=== PATIENT | male | born 1945 | race Caucasian/White ===

== ENCOUNTER → 2020-02-27 | Outpatient (CLI) | payer OTHER ==
[~2020-02-27] MED LIST: ADULT LOW DOSE81 MG PO; AMLODIPINE BESYL5 MG PO; ASA81BEC PO; ATORVASTATIN CA40 MG PO; BENAZEPRIL HCL40 MG PO; CARVEDILOL3.125 MG PO; COLACE100 MG PO; Effient PO; GLUCOPHAGE500 MG PO; LEVOXYL PO; LIPITOR40 MG PO; LIPITOR80 MG PO; METFORMIN HCL500 MG PO; NORVASC5 MG PO; SYNTHROID75 MCG PO
== END ==
LOC: SJCVC 11:24
DX: I25.10 Atherosclerotic heart disease of native coronary artery without angina pectoris (principal); R06.00 Dyspnea, unspecified; I10 Essential (primary) hypertension; E78.00 Pure hypercholesterolemia, unspecified; M17.0 Bilateral primary osteoarthritis of knee; E11.9 Type 2 diabetes mellitus without complications; E78.5 Hyperlipidemia, unspecified; E03.9 Hypothyroidism, unspecified; Z79.82 Long term (current) use of aspirin; Z79.899 Other long term (current) drug therapy; Z79.84 Long term (current) use of oral hypoglycemic drugs; Z82.49 Family history of ischemic heart disease and other diseases of the circulatory system

== ENCOUNTER → 2020-08-28 | Outpatient (CLI) | payer OTHER | LOC: SJCVCIMAG 09:46 | PROVIDERS: ATTEND Internal Medicine Cardiovascular Disease | DX: I25.10 Atherosclerotic heart disease of native coronary artery without angina pectoris (principal); I45.10 Unspecified right bundle-branch block; I44.0 Atrioventricular block, first degree; I49.3 Ventricular premature depolarization; I10 Essential (primary) hypertension; E78.00 Pure hypercholesterolemia, unspecified; E11.9 Type 2 diabetes mellitus without complications; Z79.899 Other long term (current) drug therapy ==

== ENCOUNTER → 2020-12-13 | Outpatient (CLI) | payer OTHER | LOC: SJCVC 11:10 | PROVIDERS: ATTEND Internal Medicine Cardiovascular Disease | DX: I25.10 Atherosclerotic heart disease of native coronary artery without angina pectoris (principal); I10 Essential (primary) hypertension; E78.00 Pure hypercholesterolemia, unspecified; R60.9 Edema, unspecified; Z88.5 Allergy status to narcotic agent; Z79.82 Long term (current) use of aspirin; Z79.84 Long term (current) use of oral hypoglycemic drugs; Z79.899 Other long term (current) drug therapy; Z90.89 Acquired absence of other organs; Z98.890 Other specified postprocedural states ==

== ENCOUNTER 2020-12-23 07:36 | Observation (INO) | payer OTHER ==
[~2020-12-23] VITALS: Ht 188 cm; Wt 97.2 kg
[~2020-12-23 07:36] MED LIST changes: +LEVOTHYROXINE75 MC1 PO; -SYNTHROID75 MCG PO
[2020-12-23 08:02] VITALS: BP 134/76
[2020-12-23] MEDS ORDERED: NORVASC 2.5 MG2.5 M1 PO (08:33)
[2020-12-23] MEDS ORDERED: LOSARTAN-HCTZ1 EAC3 PO (08:39)
--- NOTE | 2020-12-23 13:16 | EKG ---
[address] [address] ELECTROCARDIOGRAM REPORT Name: CHRISTINE WYLIE Room #: REG [facility]#: [id number] Admission: 12/23/20 Attend Phys: Yong Degroot MD Discharge: Date of : 45 Report #: [id number] [facility] Test Date: 2020-12-23 Test Time: 13:05:57 Pat Name: CHRISTINE WYLIE Department: Room: Gender: Photographic Intelligence Officer: JUAN MANUEL : 1945 Requested By: Yong Degroot Order Number: [id number] MD: Al Liao Measurements Intervals [place] Rate: 61 P: 9 AR: 195 QRS: 12 QRSD: 160 T: 1 QT: 466 QTc: 470 Interpretive Statements Sinus rhythm Atrial premature complex Right bundle branch block Probable lateral infarct, old Compared to ECG 03/19/2014 17:41:54 Atrial premature complex(es) now present Sinus arrhythmia no longer present Myocardial infarct finding still present Electronically Signed On 12-23-2020 13:16:30 ELECTRICAL MAINTENANCE WORKER by Al Liao [email or web address] <ELECTRONICALLY SIGNED> By: Al Liao MD 12/23/20 1316 1305 1305 Al Liao MD /EPI
[2020-12-23 13:37] LABS: ABSOLUTE NEUTROPHILS 3.4 thou/uL (1.4-8.2); BASOPHILS 0.7 % (0.0-2.0); EOSINOPHILS 1.8 % (0.0-3.0); HEMOGLOBIN 12.4 gm/dL (14.0-18.0); LYMPHOCYTES 23.9 % (24.0-44.0); MCH 32.7 pg (26.0-34.0); MCHC 33.6 g/dL (28.0-37.0); MCV 97.4 fL (80.0-100.0); MONOCYTES 7.8 % (1.0-8.0); PLATELET COUNT 221 thou/uL (150-400); POLYS 65.8 % (36.0-66.0); RDW 12.1 % (10.5-14.5); WBC 5.1 thou/uL (4.0-11.0)
[2020-12-23 13:44] LABS: CALCIUM 8.7 mg/dL (8.5-10.1); CREATININE 1.1 mg/dL (0.7-1.3); POTASSIUM 3.5 mmol/L (3.5-5.1)
[2020-12-23 13:51] LABS: ALBUMIN 3.5 g/dL (3.4-5.0); APTT 41.5 Seconds (24.5-32.8); INR 1.3; TOTAL BILIRUBIN 1.1 mg/dL (0.2-1.0); TOTAL PROTEIN 6.8 g/dL (6.4-8.2)
--- NOTE | 2020-12-23 13:57 | CATHLAB ---
[facility] [place] [address] INVASIVE PROCEDURE REPORT Name: CHRISTINE WYLIE Room #: REG [facility]#: [id number] Admission: 12/23/20 Attend Phys: Yong Degroot MD Discharge: Date of : 45 Report #: [id number] THIS REPORT FOR: cc: Elvira Lugo MD, Cynthia MD Park, Jin S. MD ~ APPROVED REPORT Study performed: 12/23/2020 09:24:43 Patient Details Patient Status: In-Patient Room #: The patient is a 75 year-old male Event Personnel Yong Degroot Tapper Shank, Vivian Handy RN RN, Raymond Carney RTR Mike Cope Roberta Monitor Procedures Performed Art Access - R femoral artery* Left Heart Cath w/or w/o Coronaries [id number] [facility] PTCA Single Vessel RCA 6050740 PCISINGLE [address] Initial Mod Sed Same Phys/QHP Gr5y 372943 93662 Mod Sed Same Phys/QHP Ea 174252 Hemostasis w/ Mynx Indication Dyspnea, Positive stress test Risk Factors Hypercholesterolemia, Coronary Artery DiseaseHypertension, Diabetes Previous Procedures/Diagnoses Previous PCI Procedure Narrative The Right Groin^ was infiltrated with 1% Lidocaine subcutaneous anesthesia. A PINNACLE 4FR Sheath #[id number] sheath was inserted into the RFA^. Coronary angiography was performed using coronary diagnostic catheters. The right coronary system was accessed and visualized with a JR4 catheter. The left coronary system was accessed and visualized with a JL5 catheter. The left ventricle was accessed and visualized with a ANGLE PIG catheter. There was no hematoma. Intraoperative Conscious Sedation [facility] [address] [place] [address] INVASIVE PROCEDURE REPORT Name: CHRISTINE WYLIE Room #: REG [facility] [id number] Admission: 12/23/20 Attend Phys: Yong Degroot MD Discharge: Date of : 45 Report #: [id number] Sedation start time: 1000 Case end Time: 1134 Fentanyl 100 mcg Versed 2 mg Fluoro Time: 17.00 minutes Dose: DAP 13932.70 cGycm2 3748 mGy Contrast Type and Amount: Omnipaque 135 ml Coronary Angiography The patient's coronary anatomy is right dominant. Diagnostic Cath Left Main The left main artery is a large-caliber vessel, with a mild to moderate proximal stenosis. LAD The LAD is heavily calcified in the proximal and mid segments. There is a borderline stenosis in the proximal segment, 60 to 70%. Diagonal 1 This is a moderate-sized caliber vessel, patent with no flow-limiting lesions. Diagonal 2 This is a moderate-sized caliber vessel, patent with no flow-limiting lesions. Circumflex This is a moderate-sized caliber vessel, supplies 1 OM vessel. There is mild to moderate disease at the ostium. OM1 This is a patent vessel, with no flow-limiting lesions. Right Coronary The RCA is a dominant vessel, heavily calcified with previous stents. The stents in the distal RCA are patent with mild restenosis. There are severe occlusions, 80 to 90% in the proximal, mid and distal segments of the RCA. The distal lesion is at the bifurcation of the PDA and RPL branch. R PDA This is a moderate-sized caliber vessel, extending out into the apical region. This vessel is patent with no flow-limiting lesions. RPLV This is a moderate-sized caliber vessel with a patent stent in the proximal segment. This vessel extends out to the inferolateral wall. Left Ventriculography Left Ventriculography was not performed. Ejection Fraction was 55-60% based off patient's Nuclear Cardiac Stress Test. An LVEDP was measured and there is no gradient across the outflow tract. Hemodynamics The aortic pressure is 121/64 mmHg with a mean of 42 mmHg. The left ventricular pressure is 140/11 mmHg with a mean of mmHg. The left ventricular end diastolic pressure is 23 mmHg. [facility] [address] [place] [address] INVASIVE PROCEDURE REPORT Name: CHRISTINE WYLIE Room #: [facility] [id number] Admission: 12/23/20 Attend Phys: Yong Degroot MD Discharge: Date of : 45 Report #: [id number] PCI Technique Lesion Percutaneous coronary intervention was performed on the proximal right coronary artery. A VISTA 6FR AR 1 #[id number] Guide Catheter was used to engage the RCA ostium. A Luge Wire .014 x 182CM #[id number] Interventional Guidewire was used to cross the lesion. BALLOON DILATION A Balloon catheter MINI TREK RX 1.5 X 12 #[id number] was inserted and inflated up to 14atm for 19seconds. Additional Inflation: 17atm for 14seconds. Additional Inflation: 16atm for 13seconds. POST STENT DEPLOYMENT BALLOON DILATION A Balloon catheter Euphora RX 2.5 x 12 #[id number] was inserted and inflated up to 10atm for 21seconds. Additional Inflation: 10atm for 19seconds. COMMENTS Initially, a luge wire was placed through the RCA and placed at the distal segment of the right posterior lateral branch. Attempts at passing a balloon into the distal lesion was unsuccessful. A second, yulissa wire was placed and only a small size balloon was able to be delivered to the distal stenosis. Even with this adjustment, we were unsuccessful in passing a 2.5 mm semicompliant balloon into the distal stenosis. At this point, the procedure was aborted. The patient will be observed overnight and will obtain a CV surgical consultation. The patient tolerated the procedure without any complaints. Conclusion 1. Severe two-vessel disease. 2. Heavily calcified lesions in the LAD and RCA. 3. Unsuccessful PCI of the RCA stenoses due to inability to pass a balloon into the distal stenosis secondary to excessive tortuosity and calcification. 4. Recommend CV surgical consultation. <ELECTRONICALLY SIGNED> By: Yong Degroot MD 12/23/20 1357 1357 1357 Yong Degroot MD /INF
--- NOTE | 2020-12-23 15:53 | 2DMMODE ---
[facility] [place] [address] 2 D/M-MODE ECHOCARDIOGRAM Name: CHRISTINE WYLIE Room #: REG [facility]#: [id number] Admission: 12/23/20 Attend Phys: Yong Degroot MD Discharge: Date of : 45 Report #: [id number] THIS REPORT FOR: cc: Elvira Lugo MD, Cynthia MD Park, Jin S. MD ~ APPROVED REPORT Study performed: 12/23/2020 15:02:18 EXAM: Comprehensive 2D, Doppler, and color-flow Echocardiogram Patient Location: CVL 3 Status: routine BSA: 2.23 HR: 60 bpm BP: 134/76 mmHg Rhythm: NSR Other Information Study Quality: Fair Technically limited study due to body habitus. Indications Pre-Op CAD 2D Dimensions RVDd: 42.57 mm IVSd: 13.46 (7-11mm) LVOT Diam: 24.71 (18-24mm) LVDd: 45.16 mm PWd: 11.60 (7-11mm) Ascending Ao: 29.82 (22-36mm) LVDs: 26.49 (25-40mm) Left Atrium: 42.73 (27-40mm) Aortic Root: 31.74 mm IVC: 11.00 mm Volumes Left Atrial Volume (Systole) Single Plane 4CH: 40.46 mL Single Plane 2CH: 20.36 mL LA ESV Index: 18.00 mL/m2 Aortic Valve AoV Peak Luis Felipe.: 1.37 m/s [facility] [address] [place] [address] 2 D/M-MODE ECHOCARDIOGRAM Name: CHRISTINE WYLIE Room #: [facility]#: [id number] Admission: 12/23/20 Attend Phys: Yong Degroot MD Discharge: Date of : 45 Report #: [id number] Peak Gr.: 7.51 mmHg LVOT Max P.26 mmHg LVOT Max V: 1.15 m/s TYLER Vmax: 4.01 cm2 Mitral Valve MV Peak Gr.: 4.59 mmHg MV Mean Gr.: 1.64 mmHg E/A Ratio: 0.8 MV Decel. Time: 430.57 ms MV E Max Luis Felipe.: 0.61 m/s MV A Luis Felipe.: 0.73 m/s MV Max Luis Felipe.: 1.07 m/s MV Mean Luis Felipe.: 0.57 m/s MV VTI: 444.05 mm MV PHT: 124.86 ms IVRT: 124.57 ms Pulmonary Valve PV Peak Luis Felipe.: 1.06 m/s PV Peak Gr.: 4.49 mmHg Pulmonary Vein P Vein S: 0.62 m/s P Vein A: 0.20 m/s P Vein D: 0.45 m/s P Vein A Dur.: 138.4 msec P Vein S/D Ratio: 1.38 Tricuspid Valve TR Peak Luis Felipe.: 2.09 m/s TR Peak Gr.: 17.41 mmHg Left Ventricle The left ventricle is normal size. There is normal LV segmental wall motion. There is normal left ventricular wall thickness. Left ventricular systolic function is normal. The left ventricular ejection fraction is within the normal range. LVEF is 65-70%. Transmitral Doppler flow pattern suggests impaired LV relaxation. Right Ventricle The right ventricle is normal size. The right ventricular systolic function is normal. Atria The left atrium size is normal. Right atrium is dilated. Aortic Valve The aortic valve is normal in structure. No aortic regurgitation is present. There is no aortic valvular stenosis. [facility] [address] [place] [address] 2 D/M-MODE ECHOCARDIOGRAM Name: CHRISTINE WYLIE Room #: REG [facility]#: [id number] Admission: 12/23/20 Attend Phys: Yong Degroot MD Discharge: Date of : 45 Report #: [id number] Mitral Valve The mitral valve is normal in structure. Trace mitral regurgitation. No evidence of mitral valve stenosis. Tricuspid Valve The tricuspid valve is normal in structure. Trace tricuspid regurgitation. Pulmonic Valve The pulmonary valve is normal in structure. There is no pulmonic valvular regurgitation. Great Vessels The aortic root is normal in size. IVC is normal in size and collapses >50% with inspiration. Pericardium There is no pericardial effusion. No pleural effusion. <Conclusion> The left ventricle is normal size. There is normal left ventricular wall thickness. Left ventricular systolic function is normal. The right ventricle is normal size. The left atrium size is normal. The aortic valve is normal in structure. Trace mitral regurgitation. <ELECTRONICALLY SIGNED> By: Yong Degroot MD 12/23/20 1553 1553 1553 Yong Degroot MD /INF
[2020-12-23] MEDS ORDERED: NORVASC10 MG PO (16:25)
[2020-12-23] MEDS ORDERED: LOSARTAN-HCTZ1 EAC2 PO (16:27)
--- NOTE | 2020-12-23 17:29 | NUR ---
REPORT GIVEN TO RANDY ON CCU. ROOM NOT CLEAN AT THIS TIME
--- NOTE | 2020-12-23 18:41 | NUR ---
PT ARRIVED TO CCU AT 1825 FROM CLIENT SUPPORT ASSOCIATE. ON EDI PROGRAMMER ANALYST. PT RESTING COMFORTABLY IN BED. BEDREST RESCTRICIONS ARE FINISHED. PT HAS RIGHT GROIN SITE FROM CLIENT SUPPORT ASSOCIATE, DRESSING IS C/D/I WITH NO S/S OF BLEEDING OR INCFECTION. PT EDUCATED ON S/S OF BLEEDING FROM SITE. PT HEMODYNAMICALLY STABLE. NEUROLOGICALLY INTACT. PT UPDATED AND EDUCATED ON PT CONDITION AND POC.
[2020-12-23 19:40] VITALS: BP 126/79
[2020-12-24 00:06] LABS: GLYCOHEMOGLOBIN (HGB A1C) 6.6 % (4.8-5.6)
[2020-12-24 01:10] VITALS: BP 127/77
[2020-12-24 01:37] LABS: URINE BILIRUBIN NEGATIVE (Negative); URINE BLOOD NEGATIVE (Negative); URINE CLARITY CLEAR; URINE COLOR YELLOW; URINE GLUCOSE-RANDOM* NEGATIVE (Negative); URINE KETONES NEGATIVE (Negative); URINE LEUKOCYTES-REFLEX NEGATIVE (Negative); URINE NITRITE-REFLEX NEGATIVE (Negative); URINE PROTEIN (DIPSTICK) NEGATIVE (Negative); URINE UROBILINOGEN 0.2 E.U./dl (0.2-1.0)
[2020-12-24 04:28] LABS: HEMATOCRIT 33.5 % (42.0-52.0); HEMOGLOBIN 11.6 gm/dL (14.0-18.0); MCH 33.5 pg (26.0-34.0); MCHC 34.5 g/dL (28.0-37.0); RBC 3.45 mil/uL (4.50-6.00); RDW 12.3 % (10.5-14.5)
[2020-12-24 05:54] VITALS: BP 130/75
--- NOTE | 2020-12-24 07:21 | EKG ---
[address] [place] [address] ELECTROCARDIOGRAM REPORT Name: CHRISTINE WYLIE Room #: 218-P [facility] M.R.#: [id number] Admission: 12/23/20 Attend Phys: Yong Degroot MD Discharge: Date of : 45 Report #: [id number] [facility] Test Date: 2020-12-24 Test Time: 07:10:38 Pat Name: CHRISTINE WYLIE Department: Room: 218 P Gender: M Cyber Crime Investigator: JUAN MANUEL : 1945 Requested By: Yong Degroot Order Number: [id number] MD: Polo Johnson Measurements Intervals [place] Rate: 61 P: -3 OH: 62 QRS: 34 QRSD: 149 T: -5 QT: 463 QTc: 467 Interpretive Statements Sinus rhythm Atrial premature complexe RBBB Short OH interval Nonspecific intraventricular conduction delay Minimal ST depression, anterior leads Artifact in lead(s) I,III,aVR,aVL,aVF,V2,V5 Compared to ECG 12/23/2020 13:05:57 Short OH interval now present Intraventricular conduction delay now present ST (T wave) deviation now present Myocardial infarct finding no longer present Electronically Signed On 12-24-2020 7:21:06 BUILDING PERFORMANCE SPECIALIST by Polo Johnson [email or web address] <ELECTRONICALLY SIGNED> By: Polo Johnson MD, [facility] 12/24/20720 9 9 Polo Johsnon MD, [facility] /EPI
--- NOTE | 2020-12-24 07:51 | NUR ---
RIGHT GROIN C/D/I THE WHOLE SHIFT.DENIES CHEST PAIN.REFUSED BLOOD GLUCOSE CHECK.EXCITED TO GO HOME TODAY.MONITOR SHOWS SINUS ARRHYTHMIA.POC CONTINUED.
[2020-12-24 08:00] VITALS: BP 124/69
--- NOTE | 2020-12-24 09:18 | NUR ---
ASSUMED PT CARE AT 0700. PT ASSESSMENT PERFORMED. VSS. PT DENIES PAIN AT THIS TIME. WILL CONTINUE TO MONITOR. PTS PLAN IS TO GO HOME TODAY.
[2020-12-24 10:37] VITALS: BP 124/69
[2020-12-25] MEDS ORDERED: NORVASC5 MG PO (10:00)
[2020-12-25] MEDS ORDERED: TUMS200 MG PO (10:04)
--- NOTE | 2020-12-29 08:24 | HC ---
[facility] [place] [address] CONSULTATION Name: CHRISTINE WYLIE Room #: 218-P [facility] Mikal Lee#: [id number] Admission: 12/23/20 Attend Phys: Yong Degroot MD Discharge: 12/24/20 Date of : 45 Report #: [id number] THIS REPORT FOR: cc: Elvira Lugo MD, Cynthia MD Forman,Stan Knutson MD ~ DATE OF SERVICE: 12/23/2020 We were asked by Dr. Yong Degroot to see the patient. HISTORY OF PRESENT ILLNESS: The patient is a 75-year-old with coronary artery disease. Nuclear stress test in August 2020 revealed inferior ischemia. Medical management was pursued until recently when the patient began having some shortness of breath and discomfort with low levels of exertion at home. The patient denies any symptoms at rest. Cardiac catheterization today demonstrates important coronary artery disease including 90% lesion in the distal right coronary at the crux along with an 80% mid and 70% proximal lesion in that vessel. There is also a 60% lesion in the very highly calcified LAD. Circumflex has a 30% stenosis, left main only 20%. At the nuclear stress test, an ejection fraction of 70% was noted. PAST MEDICAL HISTORY: Significant for hypertension, diabetes mellitus, and dyslipidemia. FAMILY HISTORY: The patient states he has a positive family history for coronary artery disease. SOCIAL HISTORY: The patient is and lives with his in [place]. He is not a smoker. MEDICATIONS: Amlodipine, atorvastatin, carvedilol, losartan, hydrochlorothiazide, thyroxine, metformin, and aspirin. ALLERGIES: The patient states he gets headaches with codeine. REVIEW OF SYSTEMS: GENERAL: No problems with fever or chills. EYES: Wears glasses. HEENT: No headaches. No sinus problems. RESPIRATORY: Some shortness of breath with exertion. No sputum production. CARDIAC: Angina with exertion. No palpitations. No rest pain. GASTROINTESTINAL: No nausea, vomiting or GI blood. GENITOURINARY: No urgency, frequency, or blood. 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 NEUROLOGIC: No motor or sensory dysfunction. SKIN: No rash or infection. HEMATOLOGIC: No bruisability or bleeding. PSYCHIATRIC: No anxiety or depression. PHYSICAL EXAMINATION: CONSTITUTIONAL: The patient is lying in bed after cardiac catheterization. VITAL SIGNS: Blood pressure 130/72, heart rate 69, respiratory rate 18. HEENT: No scleral icterus, no arcus. NECK: No mass, no bruit. CHEST: Clear to auscultation. HEART: Rhythm regular, no murmur. Somewhat distant sounds. ABDOMEN: Soft, no mass. EXTREMITIES: No clubbing, cyanosis, or edema. SKIN: No rash or infection. VASCULAR: 2+ dorsalis pedis pulses bilaterally. MUSCULOSKELETAL: No obvious bone or joint asymmetry or deformity. NEUROLOGIC: No motor or sensory dysfunction observed. PSYCHIATRIC: Shows insight into problems and is a pleasant fellow. ASSESSMENT AND PLAN: The patient has important coronary artery disease. Cardiac catheterization was done today, some attempted angioplasty was made, but disease in the right coronary was a highly calcific and diffuse and a recommendation was made for bypass surgery. I discussed the risks and details of bypass surgery with the patient. Risks include, but are not limited to, bleeding, infection, anesthesia risks, heart and lung problems, stroke and . Options and alternatives were reviewed. The patient understands all of this and he wishes to proceed. We note the patient will be discharged to home tomorrow and we have made arrangements for elective surgery next Wednesday. It was a privilege to participate in this nice fellow's care. Thank you for the consult. <ELECTRONICALLY SIGNED> By: Stan Mack MD 12/29/20 0824 1456 2103 Stan Mack MD /nt
== END 2020-12-24 11:02 | disposition home or self-care (01) ==
LOC: CATH 07:36 → 2N 18:31
PROVIDERS: Physician Assistant; ADMIT Internal Medicine Cardiovascular Disease; ATTEND Internal Medicine Cardiovascular Disease
DX: I25.110 Atherosclerotic heart disease of native coronary artery with unstable angina pectoris (principal); Z20.822 Contact with and (suspected) exposure to COVID-19; I10 Essential (primary) hypertension; E78.5 Hyperlipidemia, unspecified; E11.9 Type 2 diabetes mellitus without complications; Z79.82 Long term (current) use of aspirin; Z79.899 Other long term (current) drug therapy; Z88.5 Allergy status to narcotic agent; Z90.89 Acquired absence of other organs

== ENCOUNTER 2020-12-31 06:13 | Inpatient (IN) | payer OTHER ==
[~2020-12-31] VITALS: Ht 185.4 cm; Wt 102.5 kg
[~2020-12-31 06:13] MED LIST changes: +LOSARTAN-HCTZ1 EAC2 PO; +LOSARTAN-HCTZ1 EAC3 PO; +NORVASC 2.5 MG2.5 M1 PO; +NORVASC10 MG PO; +TUMS200 MG PO
[2020-12-31 07:55] VITALS: BP 135/76
[2020-12-31 11:59] LABS: HEMATOCRIT 22.2 % (42.0-52.0); MCH 33.1 pg (26.0-34.0); MCHC 34.2 g/dL (28.0-37.0); RBC 2.29 mil/uL (4.50-6.00); RDW 12.2 % (10.5-14.5); WBC 10.1 thou/uL (4.0-11.0)
[2020-12-31 12:02] LABS: HEMOGLOBIN 7.6 gm/dL (14.0-18.0)
[2020-12-31 12:06] LABS: APTT 25.9 Seconds (24.5-32.8)
[2020-12-31 12:11] LABS: INR 1.3
[2020-12-31 12:38] LABS: POC BE 4 mmol/L (-2.0 to +3.0); POC CA IONIZED 4.2 mg/dL (4.5-5.3); POC GLUCOSE 144 mg/dL (70-99); POC HCO3 28.7 mmol/L (22.0-26.0); POC HEMOGLOBIN 9.2 g/dL (14.0-18.0); POC POTASSIUM 3.5 mmol/L (3.5-5.1); POC SODIUM 137 mmol/L (136-145); POC pCO2 44.1 mmHg (35.0-45.0); POC pH 7.422 (7.360-7.450)
[2020-12-31 12:38] LABS: POC BE 6 mmol/L (-2.0 to +3.0); POC CA IONIZED 4.7 mg/dL (4.5-5.3); POC GLUCOSE 176 mg/dL (70-99); POC HCO3 29.6 mmol/L (22.0-26.0); POC HEMOGLOBIN 11.2 g/dL (14.0-18.0); POC POTASSIUM 3.5 mmol/L (3.5-5.1); POC SODIUM 138 mmol/L (136-145); POC pCO2 41.9 mmHg (35.0-45.0); POC pH 7.457 (7.360-7.450)
[2020-12-31 12:38] LABS: POC BE 3 mmol/L (-2.0 to +3.0); POC CA IONIZED 4.7 mg/dL (4.5-5.3); POC GLUCOSE 154 mg/dL (70-99); POC HCO3 27.8 mmol/L (22.0-26.0); POC HEMOGLOBIN 10.2 g/dL (14.0-18.0); POC POTASSIUM 3.1 mmol/L (3.5-5.1); POC SODIUM 138 mmol/L (136-145); POC pCO2 46.1 mmHg (35.0-45.0); POC pH 7.388 (7.360-7.450)
[2020-12-31 12:39] LABS: POC BE 5 mmol/L (-2.0 to +3.0); POC CA IONIZED 4.4 mg/dL (4.5-5.3); POC GLUCOSE 143 mg/dL (70-99); POC HCO3 29.1 mmol/L (22.0-26.0); POC HEMOGLOBIN 8.2 g/dL (14.0-18.0); POC POTASSIUM 3.7 mmol/L (3.5-5.1); POC SODIUM 138 mmol/L (136-145); POC pCO2 41.3 mmHg (35.0-45.0); POC pH 7.456 (7.360-7.450)
[2020-12-31 12:39] LABS: POC BE 1 mmol/L (-2.0 to +3.0); POC CA IONIZED 4.6 mg/dL (4.5-5.3); POC GLUCOSE 132 mg/dL (70-99); POC HCO3 24.7 mmol/L (22.0-26.0); POC HEMOGLOBIN 8.5 g/dL (14.0-18.0); POC POTASSIUM 3.2 mmol/L (3.5-5.1); POC SODIUM 141 mmol/L (136-145); POC pCO2 35.9 mmHg (35.0-45.0); POC pH 7.447 (7.360-7.450)
[2020-12-31 12:39] LABS: POC BE 5 mmol/L (-2.0 to +3.0); POC CA IONIZED 4.4 mg/dL (4.5-5.3); POC GLUCOSE 143 mg/dL (70-99); POC HCO3 28.8 mmol/L (22.0-26.0); POC HEMOGLOBIN 8.5 g/dL (14.0-18.0); POC POTASSIUM 3.2 mmol/L (3.5-5.1); POC SODIUM 139 mmol/L (136-145); POC pCO2 41.3 mmHg (35.0-45.0); POC pH 7.452 (7.360-7.450)
[2020-12-31 12:39] LABS: POC BE 1 mmol/L (-2.0 to +3.0); POC CA IONIZED 4.6 mg/dL (4.5-5.3); POC GLUCOSE 140 mg/dL (70-99); POC HCO3 25.2 mmol/L (22.0-26.0); POC HEMOGLOBIN 8.8 g/dL (14.0-18.0); POC POTASSIUM 3.2 mmol/L (3.5-5.1); POC SODIUM 141 mmol/L (136-145); POC pCO2 38.3 mmHg (35.0-45.0); POC pH 7.426 (7.360-7.450)
[2020-12-31 13:17] LABS: HCO3 20.8 mmol/L (22.0-26.0); PCO2 36.8 mmHg (35.0-45.0); PO2 149.1 mmHg (80.0-100.0); pH 7.371 (7.360-7.450); sO2 98.9 % (92.0-98.0)
[2020-12-31 13:32] LABS: HEMATOCRIT 26.2 % (42.0-52.0); HEMOGLOBIN 8.7 gm/dL (14.0-18.0); MCH 32.6 pg (26.0-34.0); MCHC 33.2 g/dL (28.0-37.0); RBC 2.67 mil/uL (4.50-6.00); RDW 12.3 % (10.5-14.5); WBC 11.5 thou/uL (4.0-11.0)
[2020-12-31 13:40] LABS: CREATININE 1.3 mg/dL (0.7-1.3); POTASSIUM 3.3 mmol/L (3.5-5.1)
[2020-12-31 13:41] LABS: MAGNESIUM 2.3 mg/dL (1.8-2.4)
[2020-12-31 13:53] LABS: APTT 26.3 Seconds (24.5-32.8); INR 1.1; PROTIME 11.9 Seconds (9.3-11.4)
[2020-12-31 13:57] VITALS: BP 103/49
[2020-12-31 14:00] VITALS: BP 96/50
--- NOTE | 2020-12-31 14:32 | NUR ---
1310-FROM O.R. VIA BED W OH TEAM IN ATTENDANCE.--VW 1430-PRESSURES EXTREMELY LABILE FIRST ~20 MIN OR SO p PT ARRIVED INTO ROOM. IN ROOM UNTIL MORE SETTLED.ON & OFF W CARDENE, LEVO & PROPOFOL, KEEPING BPS>90 BUT <140mmHG. VENTRICULAR DEMAND INC'D FROM 40 TO 60 W HR 40 & PT'S BPS 60'S. SENSING & PACING APPROP ( @ BEDSIDE).--VW
[2020-12-31 14:33] VITALS: BP 90/45
[2020-12-31 16:00] VITALS: BP 87/54
--- NOTE | 2020-12-31 16:19 | EKG ---
[place] [address] [facility] [employer] [place] [address] ELECTROCARDIOGRAM REPORT Name: CHRISTINE WYLIE Room #: 248-P ADM IN M.R.#: [id number] Admission: 12/31/20 Attend Phys: Stan Mack MD Discharge: Date of : 45 Report #: [id number] [facility] Test Date: 2020-12-31 Test Time: 14:30:56 Pat Name: CHRISTINE WYLIE Department: Room: 248 Gender: M Healthcare Specialist: SBERNETSO : 1945 Requested By: Ar Chavira Order Number: [id number] MD: Polo Johnson Measurements Intervals [place] Rate: 74 P: -88 PA: 254 QRS: 25 QRSD: 158 T: -5 QT: 475 QTc: 527 Interpretive Statements Sinus or ectopic atrial rhythm Right bundle branch block Compared to ECG 12/24/2020 07:10:38 Ectopic atrial rhythm now present Sinus rhythm no longer present Short PA interval no longer present Intraventricular conduction delay no longer present ST (T wave) deviation no longer present Electronically Signed On 12-31-2020 16:19:06 CARDIAC TECHNOLOGIST by Polo Johnson [email or web address] <ELECTRONICALLY SIGNED> By: Polo Johnson MD, FAC 12/31/20 1619 1430 1430 Polo Johnson MD, [facility] /EPI
[2020-12-31 19:58] LABS: BE(vivo) -1.7 mmol/L (-2 to +3); HCO3 22.3 mmol/L (22.0-26.0); PCO2 34.9 mmHg (35.0-45.0); PO2 92.1 mmHg (80.0-100.0); pH 7.424 (7.360-7.450); sO2 97.3 % (92.0-98.0)
[2020-12-31 20:00] VITALS: BP 89/51
[2020-12-31 20:29] LABS: BE(vivo) -1.6 mmol/L (-2 to +3); HCO3 22.5 mmol/L (22.0-26.0); PCO2 35.4 mmHg (35.0-45.0); PO2 94.2 mmHg (80.0-100.0); pH 7.422 (7.360-7.450); sO2 97.4 % (92.0-98.0)
[2021-01-01] VITALS (12 sets, daily range): BP systolic 91–133; BP diastolic 44–64
[2021-01-01 05:25] LABS: HEMATOCRIT 22.8 % (42.0-52.0); HEMOGLOBIN 7.7 gm/dL (14.0-18.0); MCH 32.9 pg (26.0-34.0); MCHC 33.6 g/dL (28.0-37.0); MCV 97.8 fL (80.0-100.0); RBC 2.33 mil/uL (4.50-6.00); RDW 12.2 % (10.5-14.5); WBC 6.9 thou/uL (4.0-11.0)
[2021-01-01 05:52] LABS: CREATININE 1.3 mg/dL (0.7-1.3); MAGNESIUM 2.3 mg/dL (1.8-2.4); POTASSIUM 3.2 mmol/L (3.5-5.1)
--- NOTE | 2021-01-01 08:18 | EKG ---
[place] [address] [facility] [place] [address] ELECTROCARDIOGRAM REPORT Name: CHRISTINE WYLIE Room #: 248- ADM IN M.R.#: [id number] Admission: 12/31/20 Attend Phys: Stan Mack MD Discharge: Date of : 45 Report #: [id number] [facility] Test Date: 2021-01-01 Test Time: 07:21:35 Pat Name: CHRISTINE WYLIE Department: Room: 248 Gender: M Clergy Member: JUAN MANUEL : 1945 Requested By: Ar Chavira Order Number: [id number] MD: Stefan Mclaughlin Measurements Intervals [place] Rate: 74 P: 10 SD: 240 QRS: -13 QRSD: 153 T: -4 QT: 461 QTc: 512 Interpretive Statements Sinus rhythm Prolonged SD interval Right bundle branch block Compared to ECG 12/31/2020 14:30:56 No significant changes Electronically Signed On 01-01-2021 8:17:51 SEASONAL PACKAGE HANDLER by Stefan Mclaughlin [email or web address] <ELECTRONICALLY SIGNED> By: Stefan Mclaughlin MD, [facility] 01/01/21816 0 0 Stefan Mclaughlin MD, [facility]ACC /EPI
--- NOTE | 2021-01-01 10:00 | NUR ---
RD consult received for diet instruction. S/P CABG on 12/31. Will address nutrition education needs once transferred out of ICU and more stable.
--- NOTE | 2021-01-01 10:01 | NUR ---
chart review. pod # 1. discussed during rounds this am. noted he lives with parker ramos, 1 step to enter. independent. cm called , no answer, will cont following as needed for dc needs.
--- NOTE | 2021-01-01 10:54 | NUR ---
ALERT AND ORIENTED AND VITALS STABLE. MEDICATED FOR PAIN WITH PRN MEDS. SWAN DC'D PER ORDER, TEMP PACEMAKER ATTACHED WITH BACK UP RATE OF 50. UP TO THE CHAIR WITH ASSISTANCE BY PT AND RN AND TOLERATED WELL WITH SOME MILD DIZINESS. TOLERATED DIET W/O NAUSEA BUT POOR APPETITE NOTED. CHEST TUBES AND MATILDE VAC DOCUMENTED. IN TO VISIT FOR A SHORT WHILE. PROGRESSING WELL TOWARDS POC GOALS.
--- NOTE | 2021-01-01 15:44 | NUR ---
MS CHEST TUBES DC'D AND PATIENT TOLERATED WELL. PACER WIRES CAPPED. UP TO THE CHAIR AGAIN THIS AFTERNOON AND MEDICATED FOR PAIN WITH PRN MEDS.
--- NOTE | 2021-01-01 17:46 | NUR ---
TRANSFER ORDERS RECEIVED AND REPORT CALLED TO ALEXANDR NAVARRO. PATIENT TRANSFERRED TO RM 204 WITH ALL HIS BELONGINGS.
--- NOTE | 2021-01-01 18:18 | NUR ---
PT TRANSFERED FROM ICU IN STABLE CONDITION. CHEST TUBE INTACT. PACERWIRE CAPPED. NO CONCERNS AT THIS TIME.
[2021-01-02 03:43] VITALS: BP 120/55
--- NOTE | 2021-01-02 04:42 | NUR ---
SLEPT PART OF SHIFT. MOVES AROUND IN BED. PLEURAL CHEST TUBE REMAINS IN PLACE NO AIR LEAK TO -20 SUCTION WITH MINIMAL DRAINAGE NOTED. WORKING ON GOALS AND PLAN OF CARE FOR NOC. PROGRESSING SLOWLY TOWARDS DISCHARGE GOALS. MATILDE DSG TO STERNUM INTACT WITH GREEN LIGHT FLASHING. UP TO STANDING SCALE WITH 1 ASSIST. ENCOURAGED IS WHEN AWAKE EVERY 1-2 HOURS. CONTINUE TO ASSES CLOSELY. DENIES COMPLAINTS OF CHEST PAIN OR SHORTNESS OF AIR, O2 REMAINS ON AT 1L/NC. PAIN MEDICATION GIVEN PRN FOR INCISIONAL PAIN.
[2021-01-02 05:28] LABS: HEMATOCRIT 24.8 % (42.0-52.0); HEMOGLOBIN 8.2 gm/dL (14.0-18.0); MCH 32.9 pg (26.0-34.0); MCHC 33.2 g/dL (28.0-37.0); MCV 99.1 fL (80.0-100.0); RBC 2.5 mil/uL (4.50-6.00); RDW 12.6 % (10.5-14.5); WBC 9.3 thou/uL (4.0-11.0)
[2021-01-02 05:52] LABS: CALCIUM 8.6 mg/dL (8.5-10.1); CREATININE 1.4 mg/dL (0.7-1.3); POTASSIUM 4.1 mmol/L (3.5-5.1)
[2021-01-02 07:29] VITALS: BP 136/61
[2021-01-02 11:20] VITALS: BP 137/64
[2021-01-02 17:36] VITALS: BP 125/53
--- NOTE | 2021-01-02 17:43 | NUR ---
ASSUMED CARE SHIFT CHANGE. ASSESSMENTS CHARTED.MEDS GIVEM. VSS, C/O PAIN MANAGED WITH PO PAIN MEDS. INTRODUCER REMOVED. PACER WIRES REMOVED, CHEST TUBE REMOVED PER CTS. JANA DC'D PER ORDERS. PT UP WITH CARD REHAB AND PHYS THERAPY TOLERATING WELL. UOP ADEQUATE. SR-ST MONITOR. SOB WITH EXERTION AT TIMES. PT CURRENTLY RESTING IN BED DENYING NEEDS. CONTINUING POC. WILL PASS ON REPORT TO IRINA RN.
[2021-01-02 20:15] VITALS: BP 129/63
[2021-01-03 03:52] LABS: CALCIUM 8.5 mg/dL (8.5-10.1); CREATININE 1.3 mg/dL (0.7-1.3); POTASSIUM 3.4 mmol/L (3.5-5.1)
[2021-01-03 04:30] VITALS: BP 136/72
--- NOTE | 2021-01-03 04:48 | NUR ---
SLEPT MOST OF SHIFT. ASSISTED UP TO BATHROOM WITH ASSIST OF 1. MAINTAIN SAFE ENVIRONMENT. PAIN MEDICATION NEEDED. PROGRESSING SLOWLY TOWARDS DISCHARGE GOALS.
[2021-01-03 07:36] VITALS: BP 117/54
--- NOTE | 2021-01-03 09:39 | NUR ---
Follow up s/p CABG. Diet has progressed to carb control with oral supplement bid. Pt voices no dietary questions, BG are well control. Not eating too well following surgery so able to obtain some food preferences, provide menu assistance and ordering. Pt likes ensure but only wants 1 serving per day. Low nutrition risk
--- NOTE | 2021-01-03 11:36 | NUR ---
Case discussed with the care team. CTS here this am. Pt weaning off o2 and chest tubes are out. He is working with therapy walking in the hallway. Possible dc home Wednesday with plans for outpt cardiac rehab. No cm interventions indicated at this time.
[2021-01-03 11:38] VITALS: BP 117/54
[2021-01-03 11:45] VITALS: BP 120/56
[2021-01-03 15:20] VITALS: BP 97/49
--- NOTE | 2021-01-03 18:15 | NUR ---
ASSUMED CARE SHIFT CHANGE. ASSESSMENTS CHARTED. MEDS GIVEN. VSS BP LOW, EVENING BP MED HELD. PT ASYMPTOMATIC WILL MONITOR. PT WEANED OFF O2, TOLERATING WELL ON ROOM AIR. PAIN CONTROLLED WITH PO PAIN MEDS. PT UP WITH CARD REHAB AND PHYS THERAPY TOLERATING WELL. PT CURRENTLY IN BED DENIES NEEDS. CONTINUING POC. WILL PASS ON REPORT TO IRINA STRANGE.
[2021-01-03 19:18] VITALS: BP 108/47
[2021-01-04 02:44] LABS: HEMATOCRIT 23.8 % (42.0-52.0); MCH 33.1 pg (26.0-34.0); MCHC 33.7 g/dL (28.0-37.0); MCV 98.2 fL (80.0-100.0); RBC 2.42 mil/uL (4.50-6.00); RDW 12.3 % (10.5-14.5); WBC 5.9 thou/uL (4.0-11.0)
[2021-01-04 02:58] LABS: CALCIUM 8.8 mg/dL (8.5-10.1); CREATININE 1.2 mg/dL (0.7-1.3); POTASSIUM 3.5 mmol/L (3.5-5.1)
--- NOTE | 2021-01-04 03:32 | NUR ---
Assumed pt care at 1900. Pt is alert and oriented. No sign of distress noted in pt. Denies pain currently. Pt is laying in bed, resting comfortably. Dressing intact. Assessment completed and documented. Low blood pressure noted with vitals. Pt is ambulatory. Scheduled meds administered to pt. No acute event during the night. Continue to monitor. No further needs at this time.
[2021-01-04 05:15] VITALS: BP 118/49
[2021-01-04 08:41] VITALS: BP 131/62
--- NOTE | 2021-01-04 11:09 | O ---
[facility] [place] [address] OPERATIVE REPORT Name: CHRISTINE WYLIE Room #: 204-P [facility] IN M.R.#: [id number] Admission: 12/31/20 Attend Phys: Stan Mack MD Discharge: Date of : 45 Report #: [id number] THIS REPORT FOR: cc: Rodger Dueñas MD, Samuel D. MD Forman,Stan Knutson MD ~ DATE OF SERVICE: 12/31/2020 PREOPERATIVE DIAGNOSIS: Coronary artery disease. POSTOPERATIVE DIAGNOSIS: Coronary artery disease. OPERATION: Coronary artery bypass x 3 including left internal mammary artery to left anterior descending artery, saphenous vein to posterior descending and posterolateral branches of the right coronary and endoscopic harvest, left greater saphenous vein. SURGEON: Stan Mack MD TAPER/FINISHER: SEDA Cadet. ANESTHESIA: General. INDICATIONS: The patient is a 75-year-old with a history of angina, referred by Dr. Degroot. Catheterization demonstrates high-grade LAD stenosis as well as mid and distal right coronary lesions. Left ventricular function is satisfactory. FINDINGS AND TECHNIQUE: After general anesthesia was established, saphenous vein was harvested using an endoscopic approach. Exposure was obtained through median sternotomy. Left internal mammary artery was harvested. Pericardial well was made. Cannulation sutures were placed. Heparin was given. Aorta was cannulated. Right atrium was cannulated. Cardioplegia needle was positioned in the aortic root. Retrograde cardioplegic catheter was placed in coronary sinus. Cardiopulmonary bypass was established. The aorta was cross clamped. Antegrade and retrograde cardioplegia were given. Ice was poured in the pericardial well. The heart was stopped. During electromechanical arrest, the anastomoses were performed and end-to-side anastomosis was made between vein and the posterolateral branch of the right coronary artery. Cold cardioplegia was given. The same segment of vein was sewn in end-to-side fashion to the posterior descending artery. Cold cardioplegia was given. Left internal mammary artery was sewn in end-to-side fashion to the left anterior descending artery. Patency of this vessel was checked with the temperature technique and the Doppler. Cold cardioplegia was given. One proximal anastomosis was performed. When this was complete, warm [facility] [address] [place] [address] OPERATIVE REPORT Name: CHRISTINE WYLIE Room #: 204-P [facility] IN M.R.#: [id number] Admission: 12/31/20 Attend Phys: Stan Mack MD Discharge: Date of : 45 Report #: [id number] retrograde cardioplegia was given followed by warm continuous blood to the coronary sinus. When this infusion was complete, the crossclamp was removed, de-airing maneuvers were performed. The anastomoses were inspected and found to be satisfactory. As the patient warmed, nice cardiac activity resumed, chest tubes and pacing wires were placed, a marker was placed around the proximal anastomoses. When the patient was warm, he was weaned from cardiopulmonary bypass. Venous cannula was removed. Protamine was given, the aortic cannula was removed. Flow was measured in the grafts. When hemostasis was satisfactory, chest was irrigated with antibiotic solution and closed in the usual fashion. The patient was taken to the Intensive Care Unit in good condition having tolerated the procedure well. All counts reported as correct. <ELECTRONICALLY SIGNED> By: Stan Mack MD 01/04/21 1109 [id number] [id number] Stan Mack MD /nt
--- NOTE | 2021-01-04 11:30 | EKG ---
[place] [address] [facility] [employer] [place] [address] ELECTROCARDIOGRAM REPORT Name: CHRISTINE WYLIE Room #: 204-P ADM IN M.R.#: [id number] Admission: 12/31/20 Attend Phys: Stan Mack MD Discharge: Date of : 45 Report #: [id number] [facility] Test Date: 2021-01-04 Test Time: 07:20:37 Pat Name: CHRISTINE WYLIE Department: Room: 204 P Gender: M Drapery Cutter: SATISH : 1945 Requested By: Ar Chavira Order Number: [id number] MD: Stefan Mclaughlin Measurements Intervals [place] Rate: 77 P: 28 MA: 202 QRS: -12 QRSD: 150 T: -37 QT: 429 QTc: 486 Interpretive Statements Sinus rhythm with first-degree AV block Right bundle branch block Compared to ECG 01/01/2021 07:21:35 No significant change was found Electronically Signed On 01-04-2021 11:30:20 SSDS MK 2 ADVANCED OPERATOR by Stefan Mclaughlin [email or web address] <ELECTRONICALLY SIGNED> By: Stefan Mclaughlin MD, [facility] 01/04/21 1130 9 9 Stefan Mclaughlin MD, [facility] /EPI
[2021-01-04 11:58] VITALS: BP 89/59
[2021-01-04 12:01] VITALS: BP 103/53
--- NOTE | 2021-01-04 15:15 | NUR ---
ASSESSMENT CHARTED. PT ALERT AND ORIENTED. VSS. PRN PAIN MED GIVEN WITH PARTIAL RELIEF. HAD A SHOWER THIS AM. MATILDE DRESSING CHANGED. UP IN THE CHAIR THIS SHIFT. ENCOURAGED TO USE IS. AMBULATED X2 WITH PHYSICAL THERAPIST. NO CONCERNS AT THIS TIME. PT PROGRESSING WELL TOWARDS DISCHARGE GOAL.
[2021-01-04 16:35] VITALS: BP 115/50
[2021-01-04 19:46] VITALS: BP 118/64
[2021-01-05 04:54] VITALS: BP 117/51
[2021-01-05 07:30] VITALS: BP 124/53
--- NOTE | 2021-01-05 08:16 | NUR ---
ASSESSMENTS CHARTED, MEDS CHARTED GIVEN. PATIENT UP AT [place] IN ROOM. MOVING EASILY BETWEEN BED AT RECLINER DURING SHIFT. C/O PAIN PRIOR TO BEDTIME GAVE ONE DOSE DURING SHIFT. PATIENT DID NOT REQUIRE ADDITIONAL OXYGEN DURING SHIFT. PATIENT DID NOT REQUIRE INSULIN DURING SHIFT. PLAN OF CARE IS FOR PATIENT TO RETURN HOME THIS AM.
[2021-01-05 08:49] VITALS: BP 124/53
--- NOTE | 2021-01-05 10:44 | NUR ---
DISCHARGING TO HOME WITH MATILDE IN PLACE. DENIES CP, SOA. SALINE LOCK, TELE DISCONTINUED. TELE BOX SECURED.
== END 2021-01-05 11:34 | disposition home or self-care (01) | DRG 235 ==
LOC: OR 06:13 → TBA 06:14 → OR 10:49 → ICU 14:08 → OR 15:51 → 2N 01-01 17:50
PROVIDERS: Physician Assistant; ADMIT Surgery Vascular Surgery; ATTEND Surgery Vascular Surgery
PROC: 5A1221Z Performance of Cardiac Output, Continuous (ICD-10-PCS; principal; 2020-12-31)
PROC: 02100Z9 Bypass Coronary Artery, One Artery from Left Internal Mammary, Open Approach (ICD-10-PCS; principal; 2020-12-31)
PROC: 06BQ4ZZ Excision of Left Saphenous Vein, Percutaneous Endoscopic Approach (ICD-10-PCS; principal; 2020-12-31)
PROC: 021109W Bypass Coronary Artery, Two Arteries from Aorta with Autologous Venous Tissue, Open Approach (ICD-10-PCS; principal; 2020-12-31)
DX: I25.10 Atherosclerotic heart disease of native coronary artery without angina pectoris (principal); J96.00 Acute respiratory failure, unspecified whether with hypoxia or hypercapnia; I50.33 Acute on chronic diastolic (congestive) heart failure; I50.30 Unspecified diastolic (congestive) heart failure; E78.5 Hyperlipidemia, unspecified; E11.9 Type 2 diabetes mellitus without complications; E03.9 Hypothyroidism, unspecified; D50.0 Iron deficiency anemia secondary to blood loss (chronic); I11.0 Hypertensive heart disease with heart failure; Z20.822 Contact with and (suspected) exposure to COVID-19; Z88.5 Allergy status to narcotic agent
CPT/HCPCS: 10078; 10081; 47000; 47001; 47002; 47297; 50249; 50409; 50456; 50498; 50668; 51301; 52131; 52259; 52287; 52314; 53327; 53358; 54118; 56455; 56524; 56525; 56526; 56527; 56528; 56531; 56534; 56668; 56719; 56760; 56898; 57093; 57116; 57167; 62110; 62950; 65003; 65020; 65047; 65120; 65135

== ENCOUNTER → 2021-01-21 | Outpatient (CLI) | payer OTHER | LOC: SJCVC 14:23 | PROVIDERS: ATTEND Internal Medicine Cardiovascular Disease | DX: R94.31 Abnormal electrocardiogram [ECG] [EKG] (principal); I45.10 Unspecified right bundle-branch block; I44.0 Atrioventricular block, first degree; I25.10 Atherosclerotic heart disease of native coronary artery without angina pectoris; I10 Essential (primary) hypertension; E78.00 Pure hypercholesterolemia, unspecified; R60.9 Edema, unspecified; E11.9 Type 2 diabetes mellitus without complications; E03.9 Hypothyroidism, unspecified; M19.90 Unspecified osteoarthritis, unspecified site; Z98.61 Coronary angioplasty status; Z95.1 Presence of aortocoronary bypass graft; Z88.8 Allergy status to other drugs, medicaments and biological substances; Z79.82 Long term (current) use of aspirin; Z79.84 Long term (current) use of oral hypoglycemic drugs; Z79.899 Other long term (current) drug therapy; Z82.49 Family history of ischemic heart disease and other diseases of the circulatory system ==

== ENCOUNTER → 2021-04-08 | Outpatient (CLI) | payer OTHER | LOC: SJCVCIMAG 10:54 | PROVIDERS: ATTEND Internal Medicine Cardiovascular Disease | DX: R94.31 Abnormal electrocardiogram [ECG] [EKG] (principal); I35.8 Other nonrheumatic aortic valve disorders; I10 Essential (primary) hypertension; I25.10 Atherosclerotic heart disease of native coronary artery without angina pectoris; R60.9 Edema, unspecified; E78.00 Pure hypercholesterolemia, unspecified; R00.1 Bradycardia, unspecified; E11.9 Type 2 diabetes mellitus without complications; E78.5 Hyperlipidemia, unspecified; E03.9 Hypothyroidism, unspecified; I45.10 Unspecified right bundle-branch block; Z79.82 Long term (current) use of aspirin; Z79.899 Other long term (current) drug therapy; Z79.84 Long term (current) use of oral hypoglycemic drugs; Z88.5 Allergy status to narcotic agent; Z95.1 Presence of aortocoronary bypass graft ==